=== PATIENT | female | born 1935 | race Caucasian/White ===

== ENCOUNTER 2019-07-11 10:44 | Inpatient (IN) | payer MEDICARE, MEDICAID ==
[~2019-07-11] VITALS: Ht 152.4 cm; Wt 59.0 kg
[2019-07-11] MEDS ORDERED: SODIUM CHLORIDE 0.9% 1,000 ML IV ONE (11:41)
[2019-07-11 12:33] LABS: EOSINOPHILS % 4.6 % (0.0-5.0); HEMATOCRIT. 33.6 % (36.0-48.0); HEMOGLOBIN. 11.5 g/dL (12.0-16.0); LYMPHOCYTES % 24.2 % (20.0-50.0); MEAN CORPUSCULAR HEMOGLOBIN 32.4 pg (28.0-32.0); MEAN CORPUSCULAR VOLUME 94.5 fL (81.0-99.0); MEAN PLATELET VOLUME 9.4 fl (7.4-10.4); MONOCYTES % 10.4 % (2.0-8.0); NEUTROPHILS % 59.8 % (40.0-76.0); PLATELET 164 x1000/uL (130-400); RED BLOOD CELL COUNT 3.55 mill/uL (4.2-5.4); RED CELL DISTRIBUTION WIDTH 15.2 % (11.6-14.6)
[2019-07-11 12:37] LABS: INR 1.1; PROTHROMBIN TIME 10.9 sec (9.6-11.0)
[2019-07-11 12:46] LABS: CHLORIDE 116 mEq/L (98-107)
[2019-07-11 13:39] LABS: CLARITY URINE CLEAR (CLEAR); COLOR URINE YELLOW (YELLOW); KETONES URINE NEGATIVE (NEGATIVE); LEUKOCYTE ESTERASE URINE 3+ (NEGATIVE); NITRITE URINE NEGATIVE (NEGATIVE); OCCULT BLOOD URINE NEGATIVE (NEGATIVE); PROTEIN URINE NEGATIVE (NEGATIVE); SPECIFIC GRAVITY URINE 1.009 (1.005-1.030); UROBILINOGEN URINE 0.2 E.U./dL (0.2-1.0)
[2019-07-11] MEDS ORDERED: CEFTRIAXONE 1 G PREMIX 50 ML IV ONE (14:00)
[2019-07-11] MEDS ORDERED: ONDANSETRON HCL 4MG/2ML INJ IV PRN (16:30)
[2019-07-11] MEDS ORDERED: CLONIDINE 0.1MG TABLET PO PRN (16:30)
[2019-07-11] MEDS ORDERED: ACETAMINOPHEN 325MG TABLET PO PRN (16:30)
[2019-07-11] MEDS ORDERED: NA PHOS,M-B/NA PHOS,DI-BA ENEMA 118ML PR PRN (16:30)
[2019-07-11] MEDS ORDERED: IPRATROPIUM/ALBUTEROL 0.5-3(2.5)MG/3ML NEB INH PRN (16:30)
[2019-07-11] MEDS ORDERED: MAGNESIUM/ALUMINUM HYDROXIDE/SIMETHICONE 30ML UDC PO PRN (16:30)
[2019-07-11] MEDS ORDERED: GUAIFENESIN 200MG/10ML SUGAR FREE UDC PO PRN (16:30)
[2019-07-11] MEDS ORDERED: DIPHENHYDRAMINE 50MG/ML VIAL IV PRN (16:30)
[2019-07-11] MEDS ORDERED: HYDROCODONE/ACETAMINOPHEN 5/325MG TABLET PO PRN (16:30)
[2019-07-11] MEDS ORDERED: DOCUSATE SODIUM 100MG CAPSULE PO PRN (16:30)
[2019-07-11] MEDS ORDERED: ACETAMINOPHEN 650MG SUPP PR PRN (16:30)
[2019-07-11] MEDS ORDERED: LORAZEPAM 0.5MG TABLET PO PRN (16:30)
[2019-07-11 16:44] VITALS: BP 159/66
[2019-07-11 16:47] VITALS: BP 159/66
[2019-07-11] MEDS ORDERED: ASPI-1393 PO ×2 (17:54)
[2019-07-11] MEDS ORDERED: ASCO500C15 PO (17:54)
[2019-07-11] MEDS ORDERED: LOSA50TA41 PO (17:54)
[2019-07-11] MEDS ORDERED: ATOR20TA65 PO (17:54)
[2019-07-11] MEDS ORDERED: ZINC220T4 PO (17:54)
[2019-07-11] MEDS: DEXT 5%/0.45% NACL 1000ML 1,000 ML IV SCH (18:14)
[2019-07-11] MEDS ORDERED: LEVOFLOXACIN 500MG PREMIX 100 ML IV SCH (19:00)
[2019-07-11 20:00] VITALS: BP_SYST 120; BP_SYST 146; BP_SYST 160; BP_DIAS 67; BP_DIAS 69
[2019-07-12] VITALS (8 sets, daily range): BP systolic 117–184; BP diastolic 56–79
[2019-07-12 07:00] LABS: BASOPHILS % 1.3 % (0.0-2.0); EOSINOPHILS % 6.8 % (0.0-5.0); HEMATOCRIT. 32.5 % (36.0-48.0); HEMOGLOBIN. 11.2 g/dL (12.0-16.0); LYMPHOCYTES % 27.7 % (20.0-50.0); MEAN CORPUSCULAR HEMOGLOBIN 32.5 pg (28.0-32.0); MEAN CORPUSCULAR VOLUME 94.2 fL (81.0-99.0); MEAN PLATELET VOLUME 10.3 fl (7.4-10.4); NEUTROPHILS % 54.2 % (40.0-76.0); PLATELET 158 x1000/uL (130-400); RED BLOOD CELL COUNT 3.45 mill/uL (4.2-5.4); RED CELL DISTRIBUTION WIDTH 15.2 % (11.6-14.6)
[2019-07-12 07:22] LABS: CHLORIDE 115 mEq/L (98-107)
[2019-07-12 07:34] LABS: LDL CHOLESTEROL 75 mg/dL (5-100)
[2019-07-12 07:35] LABS: HDL CHOLESTEROL 58 mg/dL (40-59)
[2019-07-12] MEDS ORDERED: SODIUM CHLORIDE 0.9% 1,000 ML IV ONE (11:45)
[2019-07-12] MEDS ORDERED: ASPIRIN 81MG TABLET PO SCH (14:00)
[2019-07-12] MEDS: DEXT 5%/0.45% NACL 1000ML 1,000 ML IV SCH (18:14)
[2019-07-12] MEDS ORDERED: LEVOFLOXACIN 250MG PREMIX 50 ML IV SCH (19:00)
[2019-07-12] MEDS ORDERED: ATORVASTATIN CALCIUM 20MG TABLET PO SCH (21:00)
[2019-07-13] MEDS ORDERED: ASCORBIC ACID 500 MG TABLET PO SCH (09:00)
[2019-07-13] MEDS ORDERED: MEDICATION NOT ON FORMULARY EA (Ascorbic Acid (Vitamin C) 500 MG) PO SCH (09:00)
[2019-07-13] MEDS ORDERED: ZINC SULFATE 220 MG ( 50 ) CAPSULE PO SCH (09:00)
[2019-07-13] MEDS ORDERED: MEDICATION NOT ON FORMULARY EA (Zinc Sulfate 220 MG) PO SCH (09:00)
== END 2019-07-12 22:20 | disposition home or self-care (01) | DRG 690 ==
LOC: ER 10:44 → EDBEDREQ 12:11 → 6WST 13:46 → EDBEDREQ 13:50 → ENRESERV 14:05 → SUPCPDRO 16:30
PROVIDERS: ADMIT Internal Medicine; ATTEND Internal Medicine
DX: N39.0 Urinary tract infection, site not specified (principal); I95.9 Hypotension, unspecified; D64.9 Anemia, unspecified; S80.11XA Contusion of right lower leg, initial encounter; W18.39XA Other fall on same level, initial encounter; E78.5 Hyperlipidemia, unspecified; E86.0 Dehydration; F03.90 Unspecified dementia, unspecified severity, without behavioral disturbance, psychotic disturbance, mood disturbance, and anxiety; I10 Essential (primary) hypertension; Z86.73 Personal history of transient ischemic attack (TIA), and cerebral infarction without residual deficits; Z87.891 Personal history of nicotine dependence; Z90.49 Acquired absence of other specified parts of digestive tract; Y93.89 Activity, other specified; Y92.89 Other specified places as the place of occurrence of the external cause; Y99.8 Other external cause status
CPT/HCPCS: 36415; 71045; 73590; 80061; 81003; 83605; 83880; 84439; 84443; 84484; 87077; 87186; 93005; 93306; 93970; 96365; 97161; 99285; J1956; J7030